=== PATIENT | female | born 1955 | race Caucasian/White ===

== ENCOUNTER 2018-12-31 16:04 | Emergency (ER) | payer OTHER ==
[2018-12-31] MEDS ORDERED: LORAZEPAM INJ 2 MG/1 ML VIAL IV ONE (16:18)
--- NOTE | 2018-12-31 16:19 | ER Document Report ---
ED Medical Screen (RME) - General Chief Complaint: Swallowed Foreign Body Stated Complaint: SWALLOWED FOREIGN OBJECT Time Seen by Provider: 12/31/18 16:16 Primary Care Provider: SUSAN SNIDER MD [Primary Care Provider] - Follow up as needed Information source: Patient Notes: Patient was eating cooked cabbage an hour and a half ago and feels as though food got stuck in her throat. Patient has been able to swallow soda and keep it down. Patient very anxious in triage requesting something to help settle her nerves. Patient does have a history of anxiety and typically takes Ativan 3 ti mes a day. I have greeted and performed a rapid initial assessment of this patient. A comprehensive ED assessment and evaluation of the patient, analysis of test results and completion of the medical decision making process will be conducted by additional ED providers. TRAVEL OUTSIDE OF THE [place] IN LAST 30 DAYS: No - Related Data Allergies/Adverse Reactions: divalproex sodium [From Depakote] Allergy (Verified 02/12/16 03:29) morphine [Morphine] Allergy (Verified 02/12/16 03:29) Past Medical History - Past Medical History Cardiac Medical History: Reports: Hx Hypercholesterolemia, Hx Hypertension Neurological Medical History: Reports: Hx Migraine Endocrine Medical History: Reports: Hx Diabetes Mellitus Type 2 Musculoskeltal Medical History: Reports Hx Arthritis, Reports Hx Fibromyalgia Psychiatric Medical History: Reports: Hx Depression Past Surgical History: Reports: Hx Breast Surgery - breast reduction, Hx Section, Hx Cholecystectomy - Immunizations Hx Diphtheria, Pertussis, Tetanus Vaccination: No Physical Exam - General General appearance: Alert, Anxious Notes: Patient able to manage oral secretions. With distraction patient talks normally, and is in no acute distress - Psychological Associated symptoms: Anxious Doctor's Discharge - Discharge Referrals: SUSAN SNIDER MD [Primary Care Provider] - Follow up as needed
--- NOTE | 2018-12-31 18:00 | RADIOLOGY REPORT (SQ) ---
EXAM DESCRIPTION: CHEST 2 VIEWS COMPLETED DATE/TIME: 12/31/2018 5:45 pm REASON FOR STUDY: ? food bolus COMPARISON: 03/17/2013. EXAM PARAMETERS: NUMBER OF VIEWS: two views TECHNIQUE: Digital Frontal and Lateral radiographic views of the chest acquired. RADIATION DOSE: NA LIMITATIONS: none FINDINGS: LUNGS AND PLEURA: No acute infiltrates or effusions. MEDIASTINUM AND HILAR STRUCTURES: No masses or contour abnormalities. HEART AND VASCULAR STRUCTURES: Borderline cardiomegaly. BONES: No acute findings. HARDWARE: Surgical clips right upper quadrant. OTHER: No other significant finding. IMPRESSION: No significant interval change. TECHNICAL DOCUMENTATION: JOB ID: [id number] 2010 [employer]- All Rights Reserved Reading location - IP/workstation name: [email or web address]
[2018-12-31] MEDS ORDERED: LIDOCAINE 2% VISCOUS SOLN 20 ML UDCUP PO ONE (18:53)
--- NOTE | 2018-12-31 18:58 | ER Document Report ---
ED General - General Chief Complaint: Sore Throat Stated Complaint: SWALLOWED FOREIGN OBJECT Time Seen by Provider: 12/31/18 16:16 Primary Care Provider: SUSAN SNIDER MD [Primary Care Provider] - Follow up as needed Notes: RME NOTE: Patient was eating cooked cabbage an hour and a half ago and feels as though food got stuck in her throat. Patient has been able to swallow soda and keep it down. Patient very anxious in triage requesting something to help settle her nerves. Patient does have a history of anxiety and typically takes Ativan 3 times a day. MY HPI: Patient is been treated with Ativan upon my assessment. She is having no respiratory distress. Complains of slight irritation when she swallows. Patient has been able to drink and eat since being in the emergency room. No episodes of vomiting. No respiratory distress noted TRAVEL OUTSIDE OF THE [place] IN LAST 30 DAYS: No - Related Data Allergies/Adverse Reactions: divalproex sodium [From Depakote] Allergy (Verified 02/12/16 03:29) morphine [Morphine] Allergy (Verified 02/12/16 03:29) Past Medical History - General Information source: Patient - Social History Smoking Status: Never Smoker Chew tobacco use (# tins/day): No Frequency of alcohol use: None Drug Abuse: None Family History: Reviewed & Not Pertinent Patient has suicidal ideation: No Patient has homicidal ideation: No - Past Medical History Cardiac Medical History: Reports: Hx Hypercholesterolemia, Hx Hypertension Neurological Medical History: Reports: Hx Migraine Endocrine Medical History: Reports: Hx Diabetes Mellitus Type 2 Musculoskeletal Medical History: Reports Hx Arthritis, Reports Hx Fibromyalgia Psychiatric Medical History: Reports: Hx Depression Past Surgical History: Reports: Hx Breast Surgery - breast reduction, Hx Section, Hx Cholecystectomy - Immunizations Hx Diphtheria, Pertussis, Tetanus Vaccination: No Review of Systems - Review of Systems Constitutional: denies: Fever EENT: See HPI Cardiovascular: No symptoms reported Respiratory: See HPI Gastrointestinal: No symptoms reported Genitourinary: No symptoms reported Female Genitourinary: No symptoms reported Musculoskeletal: No symptoms reported Skin: No symptoms reported Hematologic/Lymphatic: No symptoms reported Neurological/Psychological: No symptoms reported Physical Exam - Vital signs Vitals: Temp Pulse Resp BP Pulse Ox 99.2 F 90 20 114/59 L 99 12/31/18 16:11 12/31/18 16:11 12/31/18 16:11 12/31/18 16:11 12/31/18 16:11 - Notes Notes: GENERAL: Alert, interacts well. No acute distress. HEAD: Normocephalic, atraumatic. EYES: Pupils equal, round, and reactive to light. Extraocular movements intact. ENT: Oral mucosa moist, tongue midline. Pharynx within normal limits no palatal petechiae noted, no obvious foreign bodies noted. NECK: Full range of motion. Supple. Trachea midline. LUNGS: Clear to auscultation bilaterally, no wheezes, rales, or rhonchi. No respiratory distress. HEART: Regular rate and rhythm. No murmur ABDOMEN: Soft, non-tender. Non-distended. Bowel sounds present in all 4 q uadrants. EXTREMITIES: Moves all 4 extremities spontaneously. normal radial and dorsalis pedis pulses bilaterally. No cyanosis. BACK: no cervical, thoracic, lumbar midline tenderness. No saddle anesthesia, normal distal neurovascular exam. NEUROLOGICAL: Alert and oriented x3. Normal speech. cranial nerves II through XII grossly intact. PSYCH: Normal affect, normal mood. SKIN: Warm, dry, normal turgor. No rashes or lesions noted. Course - Re-evaluation Re-evalutation: 12/31/18 18:56 Chest X-Ray 12/31/18 16:16 IMPRESSION: No significant interval change. Patient was initially treated with Ativan by [facility] provider. Upon my assessment patient is wishing for repeat dose of Ativan. I discussed with her she is going to be discharged and should follow-up with her medications as prescribed at home. Patient agrees with plan. Patient has been able to eat and drink since incident with no complications. Patient was given a viscous lidocaine dose to help with general throat irritation. Discussed with patient and family at length should she continue with a dry cough, develop a fever, respiratory distress or chest pain she should follow-up with her primary care provider or return to the emergency room. Patient stable for discharge. - Vital Signs Vital signs: Temp Pulse Resp BP Pulse Ox 98.8 F 60 18 142/76 H 98 12/31/18 18:58 12/31/18 18:58 12/31/18 18:58 12/31/18 18:58 12/31/18 18:58 Discharge - Discharge Clinical Impression: Choking episode Anxiety disorder Qualifiers: Anxiety disorder type: unspecified anxiety disorder Qualified Code(s): F41.9 - Anxiety disorder, unspecified Condition: Stable Disposition: HOME, SELF-CARE Additional Instructions: As we discussed you have been seen and treated in the emergency department for a choking episode. At this point time your x-rays revealed no signs of abnormalities. Please make sure should you continue with a dry cough, develop a fever, chest pain or have any other concerns you should return to the emergency room. You should also follow-up with your primary care provider in the next 24 to 48 hours for continued care. Referrals: SUSAN SNIDER MD [Primary Care Provider] - Follow up as needed
[2018-12-31 19:06] VITALS: BP 142/76
== END 2018-12-31 19:06 | disposition home or self-care (01) ==
LOC: ER 16:04
DX: R09.89 Other specified symptoms and signs involving the circulatory and respiratory systems (principal); F41.9 Anxiety disorder, unspecified; I10 Essential (primary) hypertension; E11.9 Type 2 diabetes mellitus without complications; Z79.899 Other long term (current) drug therapy; Z88.8 Allergy status to other drugs, medicaments and biological substances; Z88.5 Allergy status to narcotic agent
CPT/HCPCS: 71046; J3490; J2060; 96374; 99283